=== PATIENT | male | born 1990 | race Caucasian/White ===

== ENCOUNTER 2018-06-17 21:49 | Emergency (ER) | payer SELFPAY ==
[~2018-06-17] VITALS: Ht 180.3 cm; Wt 81.8 kg
[~2018-06-17 21:49] MED LIST: ANTIBIOTIC; CIPRO 250MG TA250 MG PO; CIPRO 500MG TA500 MG PO; DOXYCYCLINE MO100 MG PO; FLAGYL500 MG PO; NO HOME MEDICATIONS; NORCO 325 MG-51 TAB PO; PERCOCET 5/321 UDTAB PO; PHENERGAN 25 TA25 MG PO; ZOFRAN 4MG T4 MG/TAB PO
[2018-06-17 22:01] VITALS: TEMP 97
[2018-06-17] MEDS ORDERED: AMOXICILLIN 50500 MG PO (22:33)
[2018-06-17 22:46] VITALS: BP 140/83; PULSE 75
== END 2018-06-17 22:48 | disposition home or self-care (01) ==
LOC: COL.ER 21:49
DX: H66.91 Otitis media, unspecified, right ear (principal); F41.9 Anxiety disorder, unspecified; Z88.8 Allergy status to other drugs, medicaments and biological substances

== ENCOUNTER 2020-12-30 07:13 | Emergency (ER) | payer SELFPAY ==
[~2020-12-30] VITALS: Ht 177.8 cm; Wt 90.0 kg
[~2020-12-30 07:13] MED LIST changes: +AMOXICILLIN 50500 MG PO
[2020-12-30 07:31] VITALS: TEMP 98.3
[2020-12-30] MEDS ORDERED: VISTARIL 2525 MG/CAP PO (08:07)
[2020-12-30 08:29] LABS: COLLECTION METHOD CLEAN CATCH
[2020-12-30 08:36] LABS: BASO % 0.4 % (0.0-2.0); EOS % 0.2 % (0-4.0); GRAN # 6.9 (1.4-6.5); GRAN % 80.5 % (42.2-75.2); HEMATOCRIT 47.7 % (42.0-52.0); HEMOGLOBIN 16.7 g/dl (13.5-18.0); LYMPH # 1.1 (1.2-3.4); LYMPH % 12.6 % (20.0-51.0); MEAN CELL VOLUME 88 fl (80.0-100.0); MEAN CORPUSCULAR HEMOGLOBIN 31 pg (27.0-31.0); MEAN CORPUSCULAR HGB CONC 35 g/dl (33.0-37.0); MEAN PLATELET VOLUME 11.7 fl (7.4-10.4); MONO # 0.5 (0.1-0.6); MONO % 6.2 % (1.7-9.3); PLATELET COUNT 251 K/mm3 (130-400); RED BLOOD COUNT 5.44 M/mm3 (4.20-5.60); REDCELL DISTRIBUTION WIDTH-CV 12.3 % (11.5-14.5)
[2020-12-30 08:38] LABS: MUCOUS Present /lpf; PH 6 (5-8); SQUAMOUS EPITHELIAL 0-2 /hpf; URINE APPEARANCE Hazy; URINE BACTERIA None Seen /hpf; URINE BILIRUBIN Negative (NEGATIVE); URINE BLOOD Negative (NEGATIVE); URINE COLOR Yellow; URINE GLUCOSE Negative (NEGATIVE); URINE KETONE 2+ (NEGATIVE); URINE LEUKOCYTE ESTERASE Negative (NEGATIVE); URINE NITRATE Negative (NEGATIVE); URINE PROTEIN(semi-quant) Negative (NEGATIVE); URINE RBC 0-2 /hpf; URINE UROBILINOGEN Negative (NEGATIVE)
[2020-12-30 08:47] LABS: ALANINE AMINOTRANSFERASE 37 U/L (4-49); ALBUMIN 5.1 gm/dL (3.5-5.0); ALKALINE PHOSPHATASE 89 U/L (50-136); ANION GAP 8 mmol/L (7-16); AST,SGOT 35 U/L (15-37); BILIRUBIN,TOTAL 1.1 mg/dL (0.0-1.0); BLOOD UREA NITROGEN 15 mg/dL (9-20); CALCIUM 9.9 mg/dL (8.4-10.2); CARBON DIOXIDE 26 mmol/L (22-30); CHLORIDE 105 mmol/L (98-107); CREATININE, serum 0.94 (0.66-1.25); GLUCOSE 131 mg/dL (74-106); LIPASE 100 U/L (23-300); POTASSIUM 4.2 mmol/L (3.4-5.0); SODIUM 139 mmol/L (137-145); TOTAL PROTEIN 8.2 gm/dL (6.4-8.2)
[2020-12-30 08:49] LABS: C-REACTIVE PROTEIN < 0.5 mg/dL (0.0-0.9)
[2020-12-30] MEDS ORDERED: ZOFRAN ODT4 MG PO (10:15)
[2020-12-30] MEDS ORDERED: PRILOSEC 20MG20 MG PO (10:17)
[2020-12-30 10:30] VITALS: BP 123/81; PULSE 89
== END 2020-12-30 10:30 | disposition home or self-care (01) ==
LOC: COL.ER 07:13
PROVIDERS: Family Medicine
DX: K29.70 Gastritis, unspecified, without bleeding (principal); F41.9 Anxiety disorder, unspecified; Z79.899 Other long term (current) drug therapy
CPT/HCPCS: C9113; J2405; J7120

== ENCOUNTER 2023-04-14 11:01 | Emergency (ER) | payer SELFPAY ==
[~2023-04-14] VITALS: Ht 177.8 cm; Wt 68.2 kg
[~2023-04-14 11:01] MED LIST changes: +PRILOSEC 20MG20 MG PO; +VISTARIL 2525 MG/CAP PO; +ZOFRAN ODT4 MG PO
[2023-04-14 14:30] VITALS: BP 109/75; PULSE 81; TEMP 98.3
== END 2023-04-14 14:30 | disposition home or self-care (01) ==
LOC: COL.ER 11:01
DX: S62.306A Unspecified fracture of fifth metacarpal bone, right hand, initial encounter for closed fracture (principal); Z28.310 Unvaccinated for COVID-19; W19.XXXA Unspecified fall, initial encounter